=== PATIENT | female | born 1995 | race Caucasian/White ===

== ENCOUNTER 2019-02-07 15:00 | Emergency (ER) | payer MEDICAID, OTHER ==
[2019-02-07] MEDS ORDERED: KETOROLAC TROMETHAMINE 60 MG/2 ML SDV IM ONE (15:31)
[2019-02-07] MEDS ORDERED: ONDANSETRON HCL INJ/PF 4 MG/2 ML SDV IV ONE (15:31)
[2019-02-07] MEDS ORDERED: NORMAL SALINE 1000 ML 1,000 ML IV ONE (15:33)
--- NOTE | 2019-02-07 15:35 | ER Document Report ---
ED Medical Screen (RME) - General Chief Complaint: Flu Symptoms Stated Complaint: FLU SYMPTOMS Time Seen by Provider: 02/07/19 15:29 Primary Care Provider: BETI BUCHANAN MD [Primary Care Provider] - Follow up as needed TRAVEL OUTSIDE OF THE [place] IN LAST 30 DAYS: No - HPI Notes: 02/07/19 15:34 23-year-old female to the emergency department with complaints of all of her body aches, upper abdominal pain, fevers with a T-max of 103, slight cough for the past 2 days. She states her symptoms started on Monday and has been getting progressively worse. She states that she has been having some difficulty keeping anything down. She states that she was able to keep Tylenol down about 2 PM. She states prior to taking the Tylenol her temp was 101. She did not get a flu shot this season. Denies any sore throat, ear pain, nasal congestion. She states her mom is sick with something similar. I performed a medical screening exam on patient and determined she needs furthe r evaluation and management by main side ER provider. I have placed initial orders to help expedite her care today. - Related Data Allergies/Adverse Reactions: cephalexin monohydrate [From Keflex] Allergy (Verified 02/07/19 15:30) Penicillins Allergy (Verified 02/07/19 15:30) promethazine HCl [From Phenergan] Allergy (Verified 02/07/19 15:30) Past Medical History - Immunizations Immunizations up to date: Yes Hx Diphtheria, Pertussis, Tetanus Vaccination: No Physical Exam - Vital signs Vitals: Temp Pulse Resp BP Pulse Ox 98.8 F 114 H 20 123/75 97 02/07/19 15:05 02/07/19 15:05 02/07/19 15:05 02/07/19 15:05 02/07/19 15:05 Course - Vital Signs Vital signs: Temp Pulse Resp BP Pulse Ox 98.8 F 114 H 20 123/75 97 02/07/19 15:05 02/07/19 15:05 02/07/19 15:05 02/07/19 15:05 02/07/19 15:05 Doctor's Discharge - Discharge Referrals: BETI BUCHANAN MD [Primary Care Provider] - Follow up as needed
[2019-02-07 16:37] LABS: AMORPHOUS SEDIMENT,URINE TRACE /HPF; APPEARANCE,URINE CLOUDY; BILIRUBIN,URINE MODERATE (NEGATIVE); COLOR,URINE AMBER; GLUCOSE, URINE NEGATIVE (NEGATIVE); KETONES,URINE TRACE mg/dL (NEGATIVE); PROTEIN,URINE 100 mg/dL (NEGATIVE)
[2019-02-07 16:46] LABS: ABSOLUTE BASOPHILS # (AUTO) 0.1 10^3/uL (0.0-0.2); ABSOLUTE LYMPHOCYTES (AUTO) 1.9 10^3/uL (0.5-4.7); ABSOLUTE MONOCYTES (AUTO) 1.1 10^3/uL (0.1-1.4); ABSOLUTE NEUT (AUTO) 11.2 10^3/uL (1.7-8.2); BASOPHILS % (AUTO) 0.4 % (0-2); EOSINOPHILS % (AUTO) 0.3 % (0-6); HEMATOCRIT 38.1 % (36.0-47.0); HEMOGLOBIN 12.5 g/dL (12.0-15.5); LYMPHOCYTES % (AUTO) 13.2 % (13-45); MEAN CORPUSCULAR HEMOGLOBIN 25.8 pg (27.0-33.4); MEAN CORPUSCULAR HGB CONC 32.9 g/dL (32.0-36.0); MEAN CORPUSCULAR VOLUME 79 fl (80-97); MONOCYTES % (AUTO) 7.4 % (3-13); PLATELET COUNT 306 10^3/uL (150-450); RED BLOOD COUNT 4.85 10^6/uL (3.72-5.28); RED CELL DISTRIBUTION WIDTH 16.2 % (11.5-14.0); SEGMENTED NEUTROPHILS % (AUTO) 78.7 % (42-78); TOTAL CELLS COUNTED % (AUTO) 100 %; WHITE BLOOD COUNT 14.3 10^3/uL (4.0-10.5)
[2019-02-07 17:04] LABS: ALBUMIN 4.1 g/dL (3.5-5.0); ALKALINE PHOSPHATASE 107 U/L (38-126); ANION GAP 14 (5-19); ASPARTATE AMINO TRANSFERASE 26 U/L (14-36); BILIRUBIN,DIRECT 0.2 mg/dL (0.0-0.4); BILIRUBIN,TOTAL 0.5 mg/dL (0.2-1.3); BLOOD UREA NITROGEN 12 mg/dL (7-20); CALCIUM 9.4 mg/dL (8.4-10.2); CARBON DIOXIDE 24 mmol/L (22-30); CHLORIDE 101 mmol/L (98-107); GLUCOSE 124 mg/dL (75-110); POTASSIUM 4.1 mmol/L (3.6-5.0); TOTAL PROTEIN 7.5 g/dL (6.3-8.2)
[2019-02-07 17:28] LABS: A TYPE INFLUENZA AG NEGATIVE (NEGATIVE); B INFLUENZA AG NEGATIVE (NEGATIVE)
[2019-02-07] MEDS ORDERED: KETOROLAC TROMETHAMINE INJ/PF 30 MG/1 ML SDV ONE (17:36)
[2019-02-07] MEDS ORDERED: ONDANSETRON HCL INJ/PF 4 MG/2 ML SDV ONE (17:36)
--- NOTE | 2019-02-07 20:33 | ER Document Report ---
ED Flu Like - General Chief Complaint: Pain All Over Stated Complaint: FLU SYMPTOMS Time Seen by Provider: 02/07/19 15:29 Primary Care Provider: BETI BUCHANAN MD [ACTIVE STAFF] - Follow up as needed Notes: AFSHIN NOTE: 23-year-old female to the emergency department with complaints of all of her body aches, upper abdominal pain, fevers with a T-max of 103, slight cough for the past 2 days. She states her symptoms started on Monday and has been getting progressively worse. She states that she has been having some difficulty keeping anything down. She states that she was able to keep Tylenol down about 2 PM. She states prior to taking the Tylenol her temp was 101. She did not get a flu shot this season. Denies any sore throat, ear pain, nasal congestion. She states her mom is sick with something similar. MY HPI: Patient's denying that her vomit has any blood. She is denying any diarrhea. Continues to deny any headaches or neck pain. Upon my assessment patient has no abdominal pain. This is when she did have pain it was more epigastric. States it was also in her left upper quadrant. Patient voices she takes Adderall, Zoloft, Claritin, omeprazole on a daily basis. Patient she has been able to drink fluids since administration of nausea medication in the emergency department. Patient's denying dysuria or vaginal discharge. TRAVEL OUTSIDE OF THE [place] IN LAST 30 DAYS: No - Related Data Allergies/Adverse Reactions: cephalexin monohydrate [From Keflex] Allergy (Verified 02/07/19 15:30) Penicillins Allergy (Verified 02/07/19 15:30) promethazine HCl [From Phenergan] Allergy (Verified 02/07/19 15:30) Past Medical History - General Information source: Patient - Social History Smoking Status: Never Smoker Chew tobacco use (# tins/day): No Frequency of alcohol use: None Drug Abuse: None Family History: Reviewed & Not Pertinent Patient has suicidal ideation: No Patient has homicidal ideation: No - Immunizations Immunizations up to date: Yes Hx Diphtheria, Pertussis, Tetanus Vaccination: No Review of Systems - Review of Systems Constitutional: Fever EENT: See HPI Cardiovascular: No symptoms reported Respiratory: See HPI Gastrointestinal: See HPI Genitourinary: denies: Dysuria Female Genitourinary: No symptoms reported Musculoskeletal: See HPI Skin: No symptoms reported Hematologic/Lymphatic: No symptoms reported Neurological/Psychological: See HPI Physical Exam - Vital signs Vitals: Temp Pulse Resp BP Pulse Ox 98.8 F 114 H 20 123/75 97 02/07/19 15:05 02/07/19 15:05 02/07/19 15:05 02/07/19 15:05 02/07/19 15:05 - Notes Notes: GENERAL: Alert, interacts well. No acute distress. HEAD: Normocephalic, atraumatic. EYES: Pupils equal, round, and reactive to light. Extraocular movements intact. ENT: Oral mucosa moist, tongue midline. Nares patent, bilateral TMs nonerythematous, nonbulging bilaterally. Pharynx within normal limits no palatal petechiae or erythema noted NECK: Full range of motion. Supple. Trachea midline. No lymphadenopathy appreciated LUNGS: Clear to auscultation bilaterally, no wheezes, rales, or rhonchi. No res piratory distress. HEART: Regular rate and rhythm. No murmur ABDOMEN: Morbidly obese, soft, non-tender. Non-distended. Bowel sounds present in all 4 quadrants. EXTREMITIES: Moves all 4 extremities spontaneously. No edema, normal radial and dorsalis pedis pulses bilaterally. No cyanosis. BACK: no cervical, thoracic, lumbar midline tenderness. No saddle anesthesia, normal distal neurovascular exam. NEUROLOGICAL: Alert and oriented x3. Normal speech. cranial nerves II through XII grossly intact. PSYCH: Normal affect, normal mood. SKIN: Warm, dry, normal turgor. No rashes or lesions noted. Course - Re-evaluation Re-evalutation: Laboratory 02/07/19 02/07/19 02/07/19 15:53 16:29 16:29 WBC 14.3 H RBC 4.85 Hgb 12.5 Hct 38.1 MCV 79 L MCH 25.8 L MCHC 32.9 RDW 16.2 H Plt Count 306 Lymph % (Auto) 13.2 [place] % (Auto) 7.4 Eos % (Auto) 0.3 Baso % (Auto) 0.4 Absolute Neuts (auto) 11.2 H Absolute Lymphs (auto) 1.9 Absolute Monos (auto) 1.1 Absolute Eos (auto) 0.0 Absolute Basos (auto) 0.1 Seg Neutrophils % 78.7 H Sodium 138.8 Potassium 4.1 Chloride 101 Carbon Dioxide 24 Anion Gap 14 BUN 12 Creatinine 0.95 Est GFR ( Amer) > 60 Est GFR (MDRD) Non-Af > 60 Glucose 124 H Calcium 9.4 Total Bilirubin 0.5 Direct Bilirubin 0.2 Neonat Total Bilirubin Not Reportable Neonat Direct Bilirubin Not Reportable Neonat Indirect Bili Not Reportable AST 26 ALT 27 Alkaline Phosphatase 107 Total Protein 7.5 Albumin 4.1 Lipase 50.7 Serum HCG, Qual Urine Color REYNA Urine Appearance CLOUDY Urine pH 5.0 Ur Specific [place] 1.050 Urine Protein 100 H Urine Glucose (UA) NEGATIVE Urine Ketones TRACE H Urine Blood NEGATIVE Urine Nitrite (Reflex) NEGATIVE Urine Bilirubin MODERATE H Urine Urobilinogen 2.0 H Leukocyte Esterase Rfl NEGATIVE Urine RBC (Auto) 8 Urine Bacteria (Auto) TRACE Urine WBC (Reflex) 8 Squamous Epi Cells Auto 12 Amorphous Sediment Auto TRACE Urine Mucus (Auto) MANY Urine Ascorbic Acid NEGATIVE Influenza A (Rapid) Influenza B (Rapid) 02/07/19 02/07/19 16:29 16:29 WBC RBC Hgb Hct MCV MCH MCHC RDW Plt Count Lymph % (Auto) [place] % (Auto) Eos % (Auto) Baso % (Auto) Absolute Neuts (auto) Absolute Lymphs (auto) Absolute Monos (auto) Absolute Eos (auto) Absolute Basos (auto) Seg Neutrophils % Sodium Potassium Chloride Carbon Dioxide Anion Gap BUN Creatinine Est GFR ( Amer) Est GFR (MDRD) Non-Af Glucose Calcium Total Bilirubin Direct Bilirubin Neonat Total Bilirubin Neonat Direct Bilirubin Neonat Indirect Bili AST ALT Alkaline Phosphatase Total Protein Albumin Lipase Serum HCG, Qual NEGATIVE Urine Color Urine Appearance Urine pH Ur Specific [place] Urine Protein Urine Glucose (UA) Urine Ketones Urine Blood Urine Nitrite (Reflex) Urine Bilirubin Urine Urobilinogen Leukocyte Esterase Rfl Urine RBC (Auto) Urine Bacteria (Auto) Urine WBC (Reflex) Squamous Epi Cells Auto Amorphous Sediment Auto Urine Mucus (Auto) Urine Ascorbic Acid Influenza A (Rapid) NEGATIVE Influenza B (Rapid) NEGATIVE Patient's labs do show a leukocytosis of 14.3. Her abdominal exam is benign, she is denying any pain at this time. States her pain was slightly epigastric in the left upper quadrant was consistent with her nausea and vomiting. Leukocytosis could be due to vomiting. Discussed with patient close return p recautions of her abdominal pain should resurface. Discussed continued use of nausea medication, antipyretics and following up with primary care provider. Patient stable for discharge. - Vital Signs Vital signs: Temp Pulse Resp BP Pulse Ox 98.8 F 114 H 20 123/75 97 02/07/19 15:05 02/07/19 15:05 02/07/19 15:05 02/07/19 15:05 02/07/19 15:05 - Laboratory Result Diagrams: 02/07/19 16:29 02/07/19 16:29 Laboratory results interpreted by me: 02/07/19 02/07/19 02/07/19 15:53 16:29 16:29 WBC 14.3 H MCV 79 L MCH 25.8 L RDW 16.2 H Absolute Neuts (auto) 11.2 H Seg Neutrophils % 78.7 H Glucose 124 H Urine Protein 100 H Urine Ketones TRACE H Urine Bilirubin MODERATE H Urine Urobilinogen 2.0 H Discharge - Discharge Clinical Impression: Viral syndrome Nausea & vomiting Qualifiers: Vomiting type: unspecified Vomiting Intractability: non-intractable Qualified Code(s): R11.2 - Nausea with vomiting, unspecified Fever Qualifiers: Fever type: unspecified Qualified Code(s): R50.9 - Fever, unspecified Condition: Stable Disposition: HOME, SELF-CARE Instructions: Viral Syndrome ([facility]), Antinausea Medication ([facility]), Fever ([facility]), Intravenous (IV) Fluids ([facility]), Vomiting ([facility]) Additional Instructions: As we discussed you have been seen and treated in the emergency department for your nausea, vomiting, fevers. Your labs show a slight increase in your white blood cells. This could be because your body is fighting off an infection. Should your abdominal pain resurface you should return to the emergency room. Please use nausea medication only as needed. Please stay well-hydrated and follow-up with your primary care provider in the next 12 to 24 hours. Return to the emergency room for any concerns. Referrals: BETI BUCHANAN MD [ACTIVE STAFF] - Follow up as needed
[2019-02-07] MEDS ORDERED: ONDANSETRON ODT 4 MG TAB (6 TAB/ER DISP) PO PRN (20:35)
[2019-02-07 20:39] VITALS: BP 141/60
== END 2019-02-07 20:43 | disposition home or self-care (01) ==
LOC: ER 15:00
DX: B34.9 Viral infection, unspecified (principal); R11.2 Nausea with vomiting, unspecified; D72.829 Elevated white blood cell count, unspecified; R50.9 Fever, unspecified; R10.13 Epigastric pain; R05 Cough; R10.12 Left upper quadrant pain; Z79.899 Other long term (current) drug therapy; Z88.1 Allergy status to other antibiotic agents; Z88.0 Allergy status to penicillin; Z88.8 Allergy status to other drugs, medicaments and biological substances
CPT/HCPCS: 36415; 83690; 84703; 85025; 80053; 81001; 87804; J1885; J2405; J7030; 96361; 96374; 96375; 99283